=== PATIENT | male | born 2000 | race Caucasian/White ===

== ENCOUNTER 2023-05-02 09:48 | Emergency (ER) | payer MEDICAID, OTHER ==
[~2023-05-02] VITALS: Ht 182.9 cm; Wt 90.0 kg
[2023-05-02 09:55] VITALS: O2SAT 100
[2023-05-02 10:19] LABS: BASOPHILS % 0.3 % (0.0-2.0); DIFFERENTIAL COMMENT 0; EOSINOPHILS % 0.8 % (0.0-5.0); HEMATOCRIT. 43.4 % (42.0-52.0); HEMOGLOBIN. 15.6 g/dL (14.0-18.0); LYMPHOCYTES % 13.2 % (20.0-50.0); MEAN CORPUSCULAR HEMOGLOBIN 33.6 pg (28.0-32.0); MEAN CORPUSCULAR HGB CONC 35.9 g/dL (31.0-37.0); MEAN CORPUSCULAR VOLUME 93.4 fL (80.0-94.0); MEAN PLATELET VOLUME 8.2 fl (7.4-10.4); MONOCYTES % 6.7 % (2.0-8.0); PLATELET 267 x1000/uL (130-400); RED BLOOD CELL COUNT 4.64 mill/uL (4.7-6.1); RED CELL DISTRIBUTION WIDTH 12.9 % (11.6-14.6)
[2023-05-02 10:27] LABS: CHLORIDE 106 mEq/L (98-107); INDEX HEMOLYSI 1 (1-3); INDEX ICTERIC 1 (1-4); INDEX LIPEMIC 1 (1-3); POTASSIUM 3.8 mEq/L (3.5-5.1); SODIUM 137 mEq/L (136-145)
[2023-05-02 10:38] LABS: ALBUMIN 4.4 g/dL (3.4-5.0); ASPARTATE AMINOTRANSFERASE 15 IU/L (15-37); BILIRUBIN TOTAL 0.6 mg/dL (0.1-1.0); CALCIUM 9.3 mg/dL (8.5-10.1); CARBON DIOXIDE 24 mEq/L (21-32); CREATININE 1.2 mg/dL (0.6-1.3); GLUCOSE 88 mg/dL (70-105); NT PRO B-TYPE NATRIURETIC PEP 6 pg/mL (5-125); PROTEIN TOTAL 7.5 g/dL (6.0-8.3); TROPONIN I HIGH SENSITIVITY 7 ng/L (<78); UREA NITROGEN BLOOD 20 mg/dL (7-21)
[2023-05-02] MEDS ORDERED: ONDANSETRON HCL 4MG/2ML INJ IV STA (11:29)
[2023-05-02] MEDS ORDERED: SODIUM CHLORIDE 0.9% 1,000 ML IV ONE (11:30)
[2023-05-02 11:59] LABS: ALANINE AMINOTRANSFERASE 30 IU/L (13-61)
[2023-05-02] MEDS ORDERED: ONDA4TAB50 PO (12:54)
[2023-05-02] MEDS ORDERED: TOPUD PO (12:54)
[2023-05-02 13:20] VITALS: BP 130/81; PULSE 77; RESP 16; TEMP 98.4
== END 2023-05-02 13:21 | disposition home or self-care (01) ==
LOC: ER 10:26 → CANBEDREQ 13:02 → ER 13:21
DX: R11.2 Nausea with vomiting, unspecified (principal); R42 Dizziness and giddiness; R51.9 Headache, unspecified; Z20.822 Contact with and (suspected) exposure to COVID-19
CPT/HCPCS: 80053; 83880; 85025; 84484; 36415; 71045; 70450; 93005; 96361; 96374; 99285; 87426; J2405; J7030; C9803; Z7610 ×2